=== PATIENT | female | born 1985 | race Caucasian/White ===

== ENCOUNTER → 2022-04-01 | Outpatient (POV) | payer OTHER ==
[~2022-04-01] VITALS: Ht 160 cm; Wt 57.3 kg
[2022-04-01 12:50] VITALS: BP 123/78
== END ==
LOC: M IRPOV 12:32
PROVIDERS: ATTEND Radiology Diagnostic Radiology
DX: C79.51 Secondary malignant neoplasm of bone (principal); C50.919 Malignant neoplasm of unspecified site of unspecified female breast; Z92.3 Personal history of irradiation; M51.36 Other intervertebral disc degeneration, lumbar region; Z79.891 Long term (current) use of opiate analgesic; N19 Unspecified kidney failure; M54.50 Low back pain, unspecified; I42.9 Cardiomyopathy, unspecified